=== PATIENT | male | born 1995 | race Caucasian/White ===

== ENCOUNTER 2016-07-11 12:53 | Emergency (ER) | payer OTHER ==
[2016-07-11 13:01] VITALS: BP 117/80; PULSE 100; RESP 15; TEMP 98.4; O2SAT 100
--- NOTE | 2016-07-11 13:44 | C.PDOC ---
History Of Present Illness The luna, a 20 y/o male, presents to the ED for evaluation of nasal congestion which began around 2 weeks ago. Patient also states he has lesions on his testicles and penile shaft which cause itchiness and irritation. Patient states he was evaluated at clinic for same symptoms and was he is positive for Herpes. Patient denies fever, chills, headache, nausea, vomiting. Time Seen by Provider: 07/11/16 13:08 Chief Complaint (Nursing): Cough, Cold, Congestion History Per: Patient History/Exam Limitations: no limitations Onset/Duration Of Symptoms: Other (2 weeks ) Current Symptoms Are (Timing): Still Present Additional History Per: Patient Past Medical History Reviewed: Historical Data, Nursing Documentation, Vital Signs Vital Signs: Last Vital Signs Temp 98.4 F 07/11/16 13:00 Pulse 100 H 07/11/16 13:00 Resp 15 07/11/16 13:00 BP 117/80 07/11/16 13:00 Pulse Ox 100 07/11/16 13:44 - Medical History PMH: No Chronic Diseases Surgical History: No Surg Hx Family History: States: Unknown Family Hx - Social History Hx Tobacco Use: No Hx Alcohol Use: No Hx Substance Use: No - Immunization History Hx Tetanus Toxoid Vaccination: No Hx Influenza Vaccination: No Hx Pneumococcal Vaccination: No Review Of Systems Except As Marked, All Systems Reviewed And Found Negative. Constitutional: Negative for: Fever, Chills ENT: Positive for: Nose Congestion Gastrointestinal: Negative for: Nausea, Vomiting Skin: Positive for: Other (+lesions on testicles and penile shaft ) Neurological: Negative for: Headache Physical Exam - Physical Exam Appears: Non-toxic, No Acute Distress Skin: Normal Color, Warm, Dry Head: Atraumatic, Normacephalic Eye(s): bilateral: Normal Inspection Nose: Other (+nasal congestion. boggy nares ) Oral Mucosa: Moist Throat: Normal, No Erythema, No Exudate Neck: Normal ROM, Supple Chest: Symmetrical, No Deformity, No Tenderness Cardiovascular: Rhythm Regular, No Murmur Respiratory: Normal Breath Sounds, No Rales, No Rhonchi, No Wheezing Back: Normal Inspection, No Vertebral Tenderness, No Paraspinal Tenderness Male Genital: Other (+small, discrete vesicular lesions to scrotum and penile shaft. lesions are not in clusters. not consistent with herpetic lesions ) Extremity: Normal ROM, Capillary Refill (less than 2 seconds ) Neurological/Psych: Oriented x3, Normal Speech, Normal Cognition Gait: Steady ED Course And Treatment O2 Sat by Pulse Oximetry: 100 (on RA) Pulse Ox Interpretation: Normal Medical Decision Making Medical Decision Making: Impression: 20 y/o male with nasal congestion, lesions on testicles and penile shaft Progress notes: Serology report from clinic was reviewed. Patient is positive for HSV1 IGG and negative for HSV 1 & HSV 2 IGM. On reassessment, patient is resting comfortably and is showing no signs of distress. Patient was advised to f/u with PMD/clinic within 1-2 days for further evaluation. Disposition Counseled Patient/Family Regarding: Need For Followup, Rx Given - Disposition Referrals: [facility] at [facility] [Outside] Disposition: HOME/ ROUTINE Disposition Time: 13:40 Condition: STABLE Prescriptions: Oxymetazoline 0.05% [Oxymetazoline HCl 30 Ml] 1 ml NS BID #1 bottle valACYclovir [Valtrex] 1 gm PO TID #21 tab Instructions: Allergic Rhinitis (ED) Forms: General Discharge Instructions - POA Present On Arrival: None - Clinical Impression Clinical Impression: Folliculitis, Seasonal allergies - Scribe Statement The provider has reviewed the documentation as recorded by the Scribe (Paula Regalado) Provider Attestation: All medical record entries made by the Scribe were at my direction and personally dictated by me. I have reviewed the chart and agree that the record accurately reflects my personal performance of the history, physical exam, medical decision making, and the department course for this patient. I have also personally directed, reviewed, and agree with the discharge instructions and disposition.
== END 2016-07-11 13:50 | disposition home or self-care (01) ==
LOC: C.ER 12:53
DX: L73.9 Follicular disorder, unspecified (principal); J30.2 Other seasonal allergic rhinitis

== ENCOUNTER 2016-09-25 15:36 | Emergency (ER) | payer OTHER ==
--- NOTE | 2016-09-25 16:31 | C.PDOC ---
History Of Present Illness Patient presents to ED c/o itchy rash on chest and upper back/neck x 4 days. He denies fever, cough, runny nose, sore throat, sensation of throat closing up , SOB. He admits to recent new necklace. Denies new detergents/lotions, etc. Time Seen by Provider: 09/25/16 16:21 Chief Complaint (Nursing): Abnormal Skin Integrity History Per: Patient History/Exam Limitations: no limitations Onset/Duration Of Symptoms: Days Current Symptoms Are (Timing): Still Present Quality Of Symptoms: Itching Severity: Mild Past Medical History Reviewed: Historical Data, Nursing Documentation, Vital Signs Vital Signs: Last Vital Signs Temp 97.5 F L 09/25/16 16:55 Pulse 73 09/25/16 16:55 Resp 18 09/25/16 16:55 BP 104/69 09/25/16 16:55 Pulse Ox 100 09/25/16 16:55 - Medical History PMH: No Chronic Diseases Family History: States: No Known Family Hx - Social History Hx Tobacco Use: No Hx Alcohol Use: No Hx Substance Use: No - Immunization History Hx Tetanus Toxoid Vaccination: No Hx Influenza Vaccination: No Hx Pneumococcal Vaccination: No Review Of Systems Except As Marked, All Systems Reviewed And Found Negative. Constitutional: Negative for: Fever, Chills ENT: Negative for: Ear Pain, Throat Pain Cardiovascular: Negative for: Chest Pain Respiratory: Negative for: Cough, Shortness of Breath Skin: Positive for: Rash Physical Exam - Physical Exam Appears: Well, Non-toxic, No Acute Distress Skin: Other (mild maculopapular rash on upper chest/neck, upper back, nonvesicular ) Oral Mucosa: Moist Throat: Normal, No Erythema, No Exudate Cardiovascular: Rhythm Regular Respiratory: Normal Breath Sounds, No Rales, No Rhonchi, No Wheezing ED Course And Treatment O2 Sat by Pulse Oximetry: 96 (RA) Pulse Ox Interpretation: Normal Progress Note: Patient given PO Prednisone, Benadryl in ED, as well as Rxs for Benadryl, prednisone, hydrocortisone cream. He was instructed to follow up with PMD/clinic in 1-2 days, or return to ED if symptoms worsen. Disposition Counseled Patient/Family Regarding: Studies Performed, Diagnosis, Need For Followup, Rx Given - Disposition Referrals: [facility] at [facility] [Outside] Disposition: HOME/ ROUTINE Disposition Time: 16:40 Condition: STABLE Additional Instructions: FOLLOW UP WITH YOUR DOCTOR/CLINIC IN 1-2 DAYS USE MEDICATIONS DIRECTED RETURN TO ER IF SYMPTOMS WORSEN Prescriptions: DiphenhydrAMINE [Benadryl] 25 mg PO Q6 PRN #15 cap PRN Reason: Itching / Pruritus Hydrocortisone 1% Oint [Cortizone 1% Oint] 1 appl TP BID #1 tube predniSONE [predniSONE Tab] 40 mg PO DAILY #6 tab Instructions: Contact Dermatitis (ED) Print Language: CYMRO - POA Present On Arrival: None - Clinical Impression Clinical Impression: Contact dermatitis, Allergic reaction
[2016-09-25 17:39] VITALS: BP 104/69; PULSE 73; RESP 18; TEMP 97.5
[2016-09-25 18:41] VITALS: O2SAT 96
== END 2016-09-25 16:55 | disposition home or self-care (01) ==
LOC: C.ER 15:36
DX: L23.9 Allergic contact dermatitis, unspecified cause (principal)